=== PATIENT | male | born 1980 | race Caucasian/White ===

== ENCOUNTER 2017-09-14 12:12 | Emergency (ER) | payer SELFPAY ==
[~2017-09-14] VITALS: Ht 175.3 cm; Wt 97.7 kg
[~2017-09-14 12:12] MED LIST: FLEXERIL 1010 MG/TAB PO; FLEXERIL5 MG PO; PERCOCET 325 MG1 TA2 PO; PRINZIDE 12.5 M1 TAB PO
[2017-09-14 12:16] VITALS: TEMP 97.8
[2017-09-14 12:51] LABS: BASO % 0.3 % (0.0-2.0); GRAN # 8.1 (1.4-6.5); GRAN % 85.5 % (42.2-75.2); HEMATOCRIT 45.3 % (42.0-52.0); HEMOGLOBIN 15.9 g/dl (13.5-18.0); LYMPH % 10.1 % (20.0-51.0); MEAN CELL VOLUME 90 fl (80.0-100.0); MEAN CORPUSCULAR HEMOGLOBIN 32 pg (27.0-31.0); MEAN CORPUSCULAR HGB CONC 35 g/dl (33.0-37.0); MEAN PLATELET VOLUME 9.8 fl (7.4-10.4); MONO # 0.4 (0.1-0.6); MONO % 3.9 % (1.7-9.3); PLATELET COUNT 250 K/mm3 (130-400); RED BLOOD COUNT 5.03 M/mm3 (4.20-5.60); REDCELL DISTRIBUTION WIDTH-CV 13.2 % (11.5-14.5)
[2017-09-14 13:05] LABS: ALANINE AMINOTRANSFERASE 71 U/L (21-72); ALBUMIN 4.8 gm/dL (3.5-5.0); ALCOHOL(ethanol),MEDICAL < 10 mg/dL; ALKALINE PHOSPHATASE 61 U/L (50-136); ANION GAP 14 mmol/L (7-16); AST,SGOT 38 U/L (15-37); BILIRUBIN,TOTAL 0.9 mg/dL (0.0-1.0); BLOOD UREA NITROGEN 13 mg/dL (9-20); C-REACTIVE PROTEIN < 0.5 mg/dL (0.0-0.9); CALCIUM 9.8 mg/dL (8.4-10.2); CARBON DIOXIDE 24 mmol/L (22-30); CHLORIDE 102 mmol/L (98-107); CREATININE, serum 0.99 mg/dL (0.66-1.25); GLUCOSE 135 mg/dL (74-106); LIPASE 75 U/L (23-300); POTASSIUM 4.1 mmol/L (3.4-5.0); SODIUM 140 mmol/L (137-145)
[2017-09-14 14:03] VITALS: BP 179/96
[2017-09-14 14:44] LABS: COLLECTION METHOD CLEAN CATCH
[2017-09-14 14:51] LABS: MUCOUS Present /lpf; PH 7 (5-8); SQUAMOUS EPITHELIAL None Seen /hpf; URINE APPEARANCE Clear; URINE BACTERIA None Seen /hpf; URINE BILIRUBIN Negative (NEGATIVE); URINE BLOOD Negative (NEGATIVE); URINE COLOR Yellow; URINE GLUCOSE Negative (NEGATIVE); URINE KETONE 1+ (NEGATIVE); URINE LEUKOCYTE ESTERASE Negative (NEGATIVE); URINE NITRATE Negative (NEGATIVE); URINE PROTEIN(semi-quant) Negative (NEGATIVE); URINE RBC 0-2 /hpf; URINE UROBILINOGEN Negative (NEGATIVE)
[2017-09-14] MEDS ORDERED: ZOFRAN ODT4 MG PO (14:57)
[2017-09-14 15:18] VITALS: PULSE 68
== END 2017-09-14 15:18 | disposition home or self-care (01) ==
LOC: COL.ER 12:12
PROVIDERS: Family Medicine
DX: K29.70 Gastritis, unspecified, without bleeding (principal); E86.9 Volume depletion, unspecified; F17.210 Nicotine dependence, cigarettes, uncomplicated
CPT/HCPCS: C9113; J2060; J2405; J2765; J7030; J7120

== ENCOUNTER 2017-11-02 07:53 | Emergency (ER) | payer SELFPAY ==
[~2017-11-02] VITALS: Ht 175.3 cm; Wt 87.8 kg
[~2017-11-02 07:53] MED LIST changes: +ZOFRAN ODT4 MG PO
[2017-11-02 07:56] VITALS: BP 170/116; TEMP 98
[2017-11-02] MEDS ORDERED: PROZAC 20MG20 MG PO (08:11)
[2017-11-02] MEDS ORDERED: XANAX 1MG1 MG PO (08:11)
[2017-11-02 08:21] LABS: BASO % 0.5 % (0.0-2.0); EOS # 0.1 (0.0-0.7); EOS % 0.7 % (0-4.0); GRAN # 4.1 (1.4-6.5); GRAN % 54.7 % (42.2-75.2); HEMATOCRIT 45.8 % (42.0-52.0); HEMOGLOBIN 16.6 g/dl (13.5-18.0); LYMPH # 2.4 (1.2-3.4); MEAN CELL VOLUME 86 fl (80.0-100.0); MEAN CORPUSCULAR HEMOGLOBIN 31 pg (27.0-31.0); MEAN CORPUSCULAR HGB CONC 36 g/dl (33.0-37.0); MEAN PLATELET VOLUME 9.8 fl (7.4-10.4); MONO % 12.7 % (1.7-9.3); PLATELET COUNT 297 K/mm3 (130-400); REDCELL DISTRIBUTION WIDTH-CV 12.4 % (11.5-14.5)
[2017-11-02 08:31] LABS: ALBUMIN 4.7 gm/dL (3.5-5.0); BILIRUBIN,TOTAL 0.9 mg/dL (0.0-1.0); CALCIUM 9.5 mg/dL (8.4-10.2); CREATININE, serum 0.96 mg/dL (0.66-1.25); POTASSIUM 3.5 mmol/L (3.4-5.0); TOTAL PROTEIN 8.2 gm/dL (6.4-8.2)
[2017-11-02 09:10] LABS: COLLECTION METHOD CLEAN CATCH
[2017-11-02 09:20] LABS: MUCOUS Present /lpf; PH 7 (5-8); SQUAMOUS EPITHELIAL None Seen /hpf; URINE APPEARANCE Clear; URINE BACTERIA None Seen /hpf; URINE BILIRUBIN Negative (NEGATIVE); URINE BLOOD Negative (NEGATIVE); URINE COLOR Yellow; URINE GLUCOSE Negative (NEGATIVE); URINE KETONE Negative (NEGATIVE); URINE LEUKOCYTE ESTERASE Negative (NEGATIVE); URINE NITRATE Negative (NEGATIVE); URINE PROTEIN(semi-quant) Negative (NEGATIVE); URINE RBC 0-2 /hpf; URINE UROBILINOGEN Negative (NEGATIVE)
[2017-11-02] MEDS ORDERED: CARAFATE 1GM1 G PO (09:51)
[2017-11-02] MEDS ORDERED: ZOFRAN ODT4 MG PO (09:51)
[2017-11-02] MEDS ORDERED: PROTONIX 40MG T40 MG PO (09:51)
[2017-11-02 10:07] VITALS: PULSE 71
== END 2017-11-02 10:28 | disposition home or self-care (01) ==
LOC: COL.ER 07:53
PROVIDERS: Physician Assistant
DX: R11.10 Vomiting, unspecified (principal); K21.9 Gastro-esophageal reflux disease without esophagitis; F17.210 Nicotine dependence, cigarettes, uncomplicated
CPT/HCPCS: J2060; J2405; J2765; J7030

== ENCOUNTER 2019-01-03 10:53 | Emergency (ER) | payer SELFPAY ==
[~2019-01-03] VITALS: Ht 175.3 cm; Wt 106.8 kg
[~2019-01-03 10:53] MED LIST changes: +CARAFATE 1GM1 G PO; +PROTONIX 40MG T40 MG PO; +PROZAC 20MG20 MG PO; +XANAX 1MG1 MG PO
[2019-01-03 10:57] VITALS: TEMP 98.7
[2019-01-03 11:20] LABS: BASO % 0.3 % (0.0-2.0); GRAN % 81.9 % (42.2-75.2); HEMATOCRIT 46.4 % (42.0-52.0); HEMOGLOBIN 16.1 g/dl (13.5-18.0); LYMPH # 1.5 (1.2-3.4); LYMPH % 11.2 % (20.0-51.0); MEAN CELL VOLUME 90 fl (80.0-100.0); MEAN CORPUSCULAR HEMOGLOBIN 31 pg (27.0-31.0); MEAN CORPUSCULAR HGB CONC 35 g/dl (33.0-37.0); MEAN PLATELET VOLUME 9.3 fl (7.4-10.4); MONO # 0.8 (0.1-0.6); PLATELET COUNT 335 K/mm3 (130-400); RED BLOOD COUNT 5.14 M/mm3 (4.20-5.60); REDCELL DISTRIBUTION WIDTH-CV 12.4 % (11.5-14.5)
[2019-01-03 11:38] LABS: ALBUMIN 5.2 gm/dL (3.5-5.0); CALCIUM 9.5 mg/dL (8.4-10.2); CREATININE, serum 1.02 (0.66-1.25); POTASSIUM 3.4 mmol/L (3.4-5.0); TOTAL PROTEIN 9.4 gm/dL (6.4-8.2)
[2019-01-03 12:53] LABS: COLLECTION METHOD CLEAN CATCH
[2019-01-03 13:14] LABS: PH 7 (5-8); SQUAMOUS EPITHELIAL None Seen /hpf; URINE APPEARANCE Clear; URINE BACTERIA None Seen /hpf; URINE BILIRUBIN Negative (NEGATIVE); URINE BLOOD Negative (NEGATIVE); URINE COLOR Yellow; URINE GLUCOSE Negative (NEGATIVE); URINE KETONE 1+ (NEGATIVE); URINE LEUKOCYTE ESTERASE Negative (NEGATIVE); URINE NITRATE Negative (NEGATIVE); URINE PROTEIN(semi-quant) Negative (NEGATIVE); URINE RBC 0-2 /hpf; URINE UROBILINOGEN Negative (NEGATIVE)
[2019-01-03] MEDS ORDERED: NORCO 325 MG-51 TAB PO (14:52)
[2019-01-03] MEDS ORDERED: PHENERGAN 25 TA25 MG PO (14:52)
[2019-01-03] MEDS ORDERED: CARAFATE S1 GM/10 ML PO (14:52)
[2019-01-03 15:20] VITALS: BP 134/87; PULSE 86
[2019-01-04] MEDS ORDERED: ZOFRAN ODT4 MG PO (09:56)
== END 2019-01-03 15:20 | disposition home or self-care (01) ==
LOC: COL.ER 10:53
PROVIDERS: Emergency Medicine
DX: R11.10 Vomiting, unspecified (principal); R10.13 Epigastric pain
CPT/HCPCS: C9113; J1170; J1200; J2405; J2550; J7030; Q9967

== ENCOUNTER 2019-01-04 07:08 | Emergency (ER) | payer SELFPAY ==
[~2019-01-04] VITALS: Ht 175.3 cm; Wt 106.8 kg
[~2019-01-04 07:08] MED LIST changes: +CARAFATE S1 GM/10 ML PO; +NORCO 325 MG-51 TAB PO; +PHENERGAN 25 TA25 MG PO
[2019-01-04 07:14] VITALS: TEMP 99.1
[2019-01-04 07:50] LABS: BASO % 0.3 % (0.0-2.0); EOS % 0.1 % (0-4.0); GRAN # 5.8 (1.4-6.5); GRAN % 75.7 % (42.2-75.2); HEMATOCRIT 39.7 % (42.0-52.0); LYMPH # 1.2 (1.2-3.4); LYMPH % 16.2 % (20.0-51.0); MEAN CELL VOLUME 90 fl (80.0-100.0); MEAN CORPUSCULAR HGB CONC 35 g/dl (33.0-37.0); MEAN PLATELET VOLUME 9.1 fl (7.4-10.4); MONO # 0.6 (0.1-0.6); MONO % 7.2 % (1.7-9.3); REDCELL DISTRIBUTION WIDTH-CV 12.4 % (11.5-14.5)
[2019-01-04 07:51] LABS: HEMOGLOBIN 13.7 g/dl (13.5-18.0); MEAN CORPUSCULAR HEMOGLOBIN 31 pg (27.0-31.0); PLATELET COUNT 224 K/mm3 (130-400)
[2019-01-04 08:01] LABS: ALBUMIN 4.4 gm/dL (3.5-5.0); BILIRUBIN,TOTAL 0.6 mg/dL (0.0-1.0); C-REACTIVE PROTEIN 0.7 mg/dL (0.0-0.9); CALCIUM 8.6 mg/dL (8.4-10.2); CREATININE, serum 1.08 (0.66-1.25); POTASSIUM 3.1 mmol/L (3.4-5.0); TOTAL PROTEIN 7.6 gm/dL (6.4-8.2)
[2019-01-04] MEDS ORDERED: ZOFRAN ODT4 MG PO (09:56)
[2019-01-04 10:09] VITALS: BP 138/79; PULSE 89
== END 2019-01-04 10:12 | disposition home or self-care (01) ==
LOC: COL.ER 07:08
PROVIDERS: Emergency Medicine
DX: K29.70 Gastritis, unspecified, without bleeding (principal); I10 Essential (primary) hypertension; K21.9 Gastro-esophageal reflux disease without esophagitis; Z90.49 Acquired absence of other specified parts of digestive tract; Z88.8 Allergy status to other drugs, medicaments and biological substances
CPT/HCPCS: J1170; J2405; J2550; J2765; J7030

== ENCOUNTER 2019-04-28 15:27 | Emergency (ER) | payer OTHER ==
[~2019-04-28] VITALS: Ht 175.4 cm; Wt 103.6 kg
[2019-04-28 15:55] VITALS: TEMP 97.9
[2019-04-28] MEDS ORDERED: CEPHALEXIN500 M1 PO (18:06)
[2019-04-28 18:32] VITALS: BP 155/88; PULSE 89
== END 2019-04-28 18:33 | disposition home or self-care (01) ==
LOC: COL.ER 15:27
DX: S61.220A Laceration with foreign body of right index finger without damage to nail, initial encounter (principal); L08.9 Local infection of the skin and subcutaneous tissue, unspecified; I10 Essential (primary) hypertension; Z23 Encounter for immunization; W26.8XXA Contact with other sharp object(s), not elsewhere classified, initial encounter; Y92.009 Unspecified place in unspecified non-institutional (private) residence as the place of occurrence of the external cause

== ENCOUNTER 2019-05-09 16:19 | Emergency (ER) | payer OTHER ==
[~2019-05-09] VITALS: Ht 175.3 cm; Wt 104.5 kg
[~2019-05-09 16:19] MED LIST changes: +CEPHALEXIN500 M1 PO
[2019-05-09 16:36] VITALS: BP 138/79
[2019-05-09 19:40] VITALS: PULSE 105; TEMP 98.1
== END 2019-05-09 19:41 | disposition home or self-care (01) ==
LOC: COL.ER 16:19
DX: S30.0XXA Contusion of lower back and pelvis, initial encounter (principal); S70.02XA Contusion of left hip, initial encounter; I10 Essential (primary) hypertension; K21.9 Gastro-esophageal reflux disease without esophagitis; R40.2412 Glasgow coma scale score 13-15, at arrival to emergency department; W00.0XXA Fall on same level due to ice and snow, initial encounter; Y92.009 Unspecified place in unspecified non-institutional (private) residence as the place of occurrence of the external cause
CPT/HCPCS: J1885

== ENCOUNTER 2020-02-17 10:12 | Emergency (ER) | payer OTHER ==
[~2020-02-17] VITALS: Ht 175.3 cm; Wt 95.9 kg
[2020-02-17 10:20] VITALS: TEMP 98.1
[2020-02-17 11:05] LABS: BASO % 0.6 % (0.0-2.0); EOS % 0.6 % (0-4.0); GRAN # 3.6 (1.4-6.5); GRAN % 68.7 % (42.2-75.2); HEMATOCRIT 42.3 % (42.0-52.0); HEMOGLOBIN 14.3 g/dl (13.5-18.0); LYMPH # 1.2 (1.2-3.4); LYMPH % 22.7 % (20.0-51.0); MEAN CELL VOLUME 93 fl (80.0-100.0); MEAN CORPUSCULAR HEMOGLOBIN 31 pg (27.0-31.0); MEAN CORPUSCULAR HGB CONC 34 g/dl (33.0-37.0); MEAN PLATELET VOLUME 9.8 fl (7.4-10.4); MONO # 0.4 (0.1-0.6); PLATELET COUNT 254 K/mm3 (130-400); RED BLOOD COUNT 4.55 M/mm3 (4.20-5.60); REDCELL DISTRIBUTION WIDTH-CV 12.9 % (11.5-14.5)
[2020-02-17 11:07] LABS: ALANINE AMINOTRANSFERASE 46 U/L (4-49); ALBUMIN 4.5 gm/dL (3.5-5.0); ALKALINE PHOSPHATASE 57 U/L (50-136); ANION GAP 11 mmol/L (7-16); AST,SGOT 41 U/L (15-37); BILIRUBIN,TOTAL 0.7 mg/dL (0.0-1.0); BLOOD UREA NITROGEN 13 mg/dL (9-20); CALCIUM 9.3 mg/dL (8.4-10.2); CARBON DIOXIDE 25 mmol/L (22-30); CHLORIDE 104 mmol/L (98-107); GLUCOSE 113 mg/dL (74-106); POTASSIUM 4.1 mmol/L (3.4-5.0); SODIUM 140 mmol/L (137-145); TOTAL PROTEIN 7.6 gm/dL (6.4-8.2)
[2020-02-17 11:29] LABS: TROPONIN-I < 0.012 ng/mL (0.000-0.035)
[2020-02-17 12:05] VITALS: BP 165/105; PULSE 74
== END 2020-02-17 12:10 | disposition home or self-care (01) ==
LOC: COL.ER 10:12
PROVIDERS: Emergency Medicine
DX: I10 Essential (primary) hypertension (principal); Z88.8 Allergy status to other drugs, medicaments and biological substances